=== PATIENT | female | born 1965 | race Caucasian/White ===

== ENCOUNTER 2019-07-05 11:04 | Emergency (ER) | payer OTHER ==
[2019-07-05 11:30] VITALS: BP 145/50; PULSE 68; TEMP 98.2; BMI 28.7
--- NOTE | 2019-07-05 12:12 | PDOC ---
History of Present Illness - General Chief Complaint: Ear Problem Stated Complaint: LT EAR PAIN Time Seen by Provider: 07/05/19 11:34 History Source: Patient - History of Present Illness Initial Comments: 07/05/19 12:07 54-year-old female complaining of left ear pain, left jaw pain worse with chewing or moving opening mouth. Patient reports that she was seen by dentist and was given naproxen with no improvement in symptoms. Denies fever/chills denies runny nose cough, chest pain, nausea, vomiting Past medical history :high cholesterol, gallstones 07/05/19 12:11 Past History - Past Medical History Allergies/Adverse Reactions: Allergies Allergy/AdvReac Type Severity Reaction Status Date / Time ibuprofen [From Motrin] Allergy Verified 07/05/19 11:31 Home Medications: Ambulatory Orders Ciprofloxacin HCl/Dexameth [Ciprodex Otic Suspension] 4 drop AU BID #1 bottle Fluticasone Prop 0.05% Nasal [Flonase -] 1 - 2 spray NS BID #1 spray.pump - Psycho Social/Smoking Cessation Hx Smoking History: Never smoked Have you smoked in the past 12 months: No Information on smoking cessation initiated: No Hx Alcohol Use: No Drug/Substance Use Hx: No *Physical Exam - Vital Signs Last Vital Signs Temp Pulse Resp BP Pulse Ox 98.2 F 68 16 145/50 L 97 07/05/19 11:27 07/05/19 11:27 07/05/19 11:27 07/05/19 11:27 07/05/19 11:27 - Physical Exam General Appearance: Yes: Appropriately Dressed HEENT: positive: Other (Effusion to left TM with mild erythema, Clicking noted at the TMJ with opening and closing mouth. No trismus) Extremity: positive: Normal Capillary Refill, Normal Inspection, Normal Range of Motion Integumentary: positive: Normal Color, Dry, Warm Neurologic: positive: Fully Oriented, Alert, Normal Mood/Affect Medical Decision Making - Medical Decision Making 07/05/19 12:10 A: TMJ arthritis and left otitis media P: naproxen ciprodex Discharge - Discharge Information Problems reviewed: Yes Clinical Impression/Diagnosis: Left otitis media with effusion, TMJ arthritis Condition: Stable Disposition: HOME - Additional Discharge Information Prescriptions: Ciprofloxacin HCl/Dexameth [Ciprodex Otic Suspension] 4 drop AU BID #1 bottle Fluticasone Prop 0.05% Nasal [Flonase -] 1 - 2 spray NS BID #1 spray.pump - Follow up/Referral Referrals: Bridget Gutierrez NP [Primary Care Provider] - - Patient Discharge Instructions Patient Printed Discharge Instructions: Middle Ear Infection Additional Instructions: 1. You are being treated for otitis media 2. we are prescribing ear drop for pain as well as to continue current eardrops and as oral antibiotics. 3. Use the ciprodexfor one week. Take naproxen as needed for pain. 4. Call Dr. Rivera (ENT) for an appointment since you are having persistent issues with your ear. 5. Return here for any worsening symptoms. - Post Discharge Activity Work/Back to School Note: Back to Work
[2019-07-05] MEDS ORDERED: ACETAMINOPHEN 500 MG TABLET (FP) PO ONE (12:32)
[2019-07-05] MEDS ORDERED: ACETAMINOPHEN 500 MG TABLET (FP) ONE (12:49)
== END 2019-07-05 12:52 | disposition home or self-care (01) ==
LOC: JERFT 11:04
DX: H65.191 Other acute nonsuppurative otitis media, right ear (principal); M26.69 Other specified disorders of temporomandibular joint
CPT/HCPCS: 99281-25

== ENCOUNTER 2022-08-28 09:21 | Emergency (ER) | payer OTHER ==
[2022-08-28 09:41] VITALS: TEMP 97.8; BMI 35.6
[2022-08-28] MEDS ORDERED: SODIUM CHLORIDE 0.9% 500 ML INFUS.BAG IV ONE (09:53)
[2022-08-28] MEDS ORDERED: ACETAMINOPHEN 1000 MG/100 ML BAG IVPB ONE (09:53)
[2022-08-28] MEDS ORDERED: METOCLOPRAMIDE HCL INJECTION 10 MG/2 ML VIAL IVPB ONE (09:53)
[2022-08-28] MEDS ORDERED: ACETAMINOPHEN INJECTION 100 ML IVPB ONE (10:00)
[2022-08-28] MEDS ORDERED: METOCLOPRAMIDE HCL INJECTION 10 MG/2 ML VIAL ONE (10:00)
[2022-08-28 10:06] LABS: BASO % 0.6 % (0-2.0); EOS % 1.3 % (0-4.5); HEMATOCRIT 39.3 % (32.4-45.2); LYMPH % 24.4 % (8-40); MCH 34.5 pg (25.7-33.7); MCHC 35.6 g/dl (32.0-36.0); MEAN CELL VOLUME 97.1 fl (80-96); MEAN PLT VOLUME 8.6 fl (7.5-11.1); MONO % 4.8 % (3.8-10.2); NEUT % 68.9 % (42.8-82.8); PLATELET COUNT 212 10^3/uL (134-434); RBC 4.05 M/mm3 (3.60-5.2); RDW 12.7 % (11.6-15.6); WHITE BLOOD COUNT 10.1 K/mm3 (4.0-10.0)
[2022-08-28 10:11] VITALS: RESP 18
[2022-08-28 10:24] LABS: CALCIUM 8.7 mg/dL (8.5-10.1)
[2022-08-28 10:25] LABS: ALBUMIN 3.8 g/dl (3.4-5.0); BLOOD UREA NITROGEN 13.4 mg/dL (7-18); MAGNESIUM 2.3 mg/dL (1.8-2.4)
[2022-08-28 10:28] LABS: CREATININE 0.7 mg/dL (0.55-1.3)
[2022-08-28 10:29] LABS: BILIRUBIN,TOTAL 0.6 mg/dL (0.2-1)
[2022-08-28 13:22] LABS: PH,URINE 6.5 (5.0-8.0); URINE APPEARANCE CLEAR; URINE BILIRUBIN NEGATIVE (NEGATIVE); URINE COLOR YELLOW; URINE GLUCOSE (UA) NEGATIVE (NEGATIVE); URINE KETONE NEGATIVE (NEGATIVE); URINE LEUK ESTERASE NEGATIVE (NEGATIVE); URINE NITRITE NEGATIVE (NEGATIVE); URINE PROTEIN NEGATIVE (NEGATIVE); URINE UROBILINOGEN 0.2 mg/dL (0.2-1.0)
[2022-08-28 17:46] VITALS: BP 123/56; PULSE 66
== END 2022-08-28 18:02 | disposition home or self-care (01) ==
LOC: JER 09:21
PROC: 3E033NZ Introduction of Analgesics, Hypnotics, Sedatives into Peripheral Vein, Percutaneous Approach (ICD-10-PCS; principal; 2022-08-28)
PROC: 3E033GC Introduction of Other Therapeutic Substance into Peripheral Vein, Percutaneous Approach (ICD-10-PCS; 2022-08-28)
DX: R07.9 Chest pain, unspecified (principal); R11.2 Nausea with vomiting, unspecified; R51.9 Headache, unspecified; R10.32 Left lower quadrant pain; R42 Dizziness and giddiness; Z20.822 Contact with and (suspected) exposure to COVID-19
CPT/HCPCS: 0241U-QW; 36415; 70450-TC; 71045-TC-FY; 74177-TC; 76705-TC; 80053; 81003; 83690; 83735; 84484; 85025; 87086; 93005; 93010; 99285-25; C1887; Q9967